=== PATIENT | female | born 1990 | race African-American/Black ===

== ENCOUNTER 2016-08-02 10:29 | Emergency (ER) | payer OTHER ==
[2016-08-02] MEDS ORDERED: Ibuprofen 800 MG TAB ONE (10:48)
--- NOTE | 2016-08-02 12:02 | ERRECORD ---
[facility] EMERGENCY RECORD HPI HEADACHE (10:48 JOHE) CHIEF COMPLAINT: Patient presents for evaluation of headache. HISTORIAN: History provided by patient, Pt. reports one month of intermittent frontal headaches radiating to both temples. Pt. reports gets the headaches about once or twice a week, and each headache lasts 15-20 minutes, but then recurs again later. Patient reports since last night she has been having the same type of headache. Patient reports pain is 8/10. Denies vision changes, photophobia, neck pain, F&C, rash, new numbness/tingling/weakness, hearing change, tinnitus, taste changes, and other symptoms. No trauma. Patient reports she has seen her PCP who gave her some medication that helped, but she ran out of it. Does state when asked that headache worse when bending over but not lying down, and she thinks sometimes headache does wake her from sleep. No personal or FH of brain lesions, aneurysm, connective tissue DOs, or PCKD. When asked, patient states she came to ED today because she did not feel like driving to [place] to see her PCP. LOCATION: Symptoms are localized, most severe in the frontal region. QUALITY: Pain is dull in nature, described as aching. TIME COURSE: Sudden onset of symptoms, There has been no change in the patient's symptoms over time, Symptoms are intermittent. ASSOCIATED WITH FEMALE: No associated aura, No associated chills, No associated fever, No associated focal weakness, Posterior circulation related symptoms, No associated nausea, No associated vomiting, no associated vertigo, not associated with Diplopia, No associated visual changes, No associated gait disturbance, Not associated with , No associated neck pain, No associated syncope, No associated trauma, No associated tingling, No associated numbness, No associated upper respiratory infection, Denies any other complaints. RELIEVED BY: Patient's condition relieved by over the counter medications, motrin last night, Patient's condition relieved by prescription medications. RISK FACTORS: Subarachnoid hemorrhage risk factors, no first degree relative, no history of subarachnoid hemorrhage, No evidence of Marfan's Syndrome, no Ruth Danlos Syndrome, No Sympathomimetic Drug Use, no polycystic kidney, Subarachnoid hemorrahage risk factor analysis completed. ROS (10:52 JOHE) CONSTITUTIONAL: Historian denies chills, denies fatigue, denies fever, denies malaise, denies night sweats, denies weakness, denies weight loss. EYES: Historian denies eye pain, denies eye redness, denies eye discharge, denies nystagmus, denies photophobia, denies tearing, denies vision changes. ENT: Historian denies otalgia, denies rhinorrhea, denies sinus pain, denies sore throat, denies stridor, denies tinnitus. CARDIOVASCULAR: Historian denies chest pain, denies syncope, denies palpitations. &a-1R&a+25V*p+0X*[id number]*c202B*c15G*c2P*p-0X&a-25V&a+1R Name: Kiarra Lee : 1990 F26 MedRec: [id number] AcctNum: [id number] Prepared: FriAug 02, 2016 11:51 by Interface Page 1 of 4 D [facility] EMERGENCY RECORD RESPIRATORY: Historian denies cough, denies shortness of breath, denies wheezing. GI: Historian denies abdominal pain, denies nausea, denies vomiting. MUSCULOSKELETAL: Historian denies back pain, denies fall, denies injury, denies neck pain. SKIN: Historian denies rash, denies skin changes. NEUROLOGIC: Historian denies confusion, denies dizziness, denies focal weakness, denies gait changes, reports headache, denies mental status changes, denies paralysis, denies paresthesias, denies seizures, denies sensory changes, denies speech changes. HEMO/LYMPHATIC: Historian denies abnormal blood clotting, denies easy bruising. NOTES: All systems reviewed, negative except as described above. PAST MEDICAL HISTORY (10:35 BDON) MEDICAL HISTORY: No past medical history, Flu vaccine not up to date, Tetanus immunization up to date, Pneumococcal vaccine not up to date. FEMALE SURGICAL HISTORY: Patient has no surgical history,. SOCIAL HISTORY: Patient drinks socially, rarely, Patient denies drug use, Patient has no smoking history. KNOWN ALLERGIES No Known Drug Allergies CURRENT MEDICATIONS (10:33 BDON) None VITAL SIGNS VITAL SIGNS: Temp: 98.6 (Oral), Time: 08/02/2016 10:31. (10:31 BDON) BP: 128/75, Pulse: 80, Resp: 18, Temp: 98.6 (Oral), Pain: 8, O2 sat: 99, Time: 08/02/2016 10:33. (10:33 BDON) Pulse: 82, Resp: 17, Pain: 8, Time: 08/02/2016 11:35. (11:35 BDON) PHYSICAL EXAM (10:53 JOHE) CONSTITUTIONAL: Vital Signs Reviewed, Patient appears non toxic, Patient alert and oriented to person, place and time. HEAD: Head exam normal, Head exam included findings of head atraumatic, normocephalic, NCAT, no raccoon eyes or sung sign. EYES: Eye exam normal, Eye exam included findings of eyelids normal to inspection, Pupils equally round and reactive to light, Extraocular muscles intact, Conjunctiva normal, Sclera normal, Fundoscopic exam normal, Eye exam included findings of anterior chamber clear, no nystagmus, PERRLA, EOMI, no nystagmus; nondilated funduscopic exam unremarkable. ENT: Pharynx exam normal, not injected, no swelling, symmetrical, &a-1R&a+25V*p+0X*g6181C*c202B*c15G*c2P*p-0X&a-25V&a+1R Name: Kiarra Lee : 1990 F26 MedRec: [id number] AcctNum: [id number] Prepared: FriAug 02, 2016 11:51 by Interface Page 2 of 4 pMD [facility] EMERGENCY RECORD Uvula exam normal, midline, no edema, Tonsil exam normal, not enlarged, no exudates, Mouth exam normal, mucous membranes moist, no drooling, no lesions, no lacerations, no tongue elevation, Left TM obscured by cerumen, right TM unremarkable. OP clear, neck supple, no meningeal signs. NECK: Neck exam normal, Neck exam included findings of normal range of motion, Trachea midline, no carotid bruits, no meningeal signs, no cervical adenopathy, no tenderness, no contusions, no ecchymosis. RESPIRATORY CHEST: Respiratory and chest exam normal, Respiratory exam included findings of no respiratory distress, Breath sounds clear, No wheezing, No rales, No rhonchi, Breath sounds not absent, Breath sounds not diminished, Chest exam included findings of chest movement symmetrical, CTAB. CARDIOVASCULAR: Cardiovascular assessment normal, Cardiovascular exam included findings of heart rate regular rate and rhythm, Heart sounds normal, Carotids normal, Pedal pulses normal, RRR, no R/M/G. + pulses all ext., no bruits, no edema. ABDOMEN FEMALE: Abdominal exam normal, Abdominal exam included findings of abdomen nontender, Bowel sounds normal. BACK: Back exam normal, Back exam included findings of normal inspection, range of motion normal. UPPER EXTREMITY: Upper extremity exam normal, Upper extremity exam included findings of inspection normal, Range of motion normal, Motor strength normal, Sensation intact, Radial pulse normal. LOWER EXTREMITY: Lower extremity exam normal, Lower extremity exam included findings of inspection normal, Range of motion normal, Motor strength normal, Sensation intact, Posterior tibial pulse normal, Pedal pulse normal, no edema. NEURO: Neuro exam normal, [place] coma scale 15, Neuro exam findings include patient oriented to person, place and time, Speech normal, Gait normal, Memory normal, Cranial nerves intact, Deep tendon reflexes normal, no focal motor deficits, no focal sensory deficits, no cerebellar deficits, no nystagmus, no clonus, no asterixis, AAO X 3, CN II-XII intact bilat., str. 5/5 all ext., sensation intact light touch all ext., normal finger-nose, THIERNO, gait. Reflexes 1-2+/4 equal all ext. SKIN: Skin exam normal, Skin exam included findings of skin warm, dry, and normal in color, no rash. PSYCHIATRIC: Psychiatric exam included findings of patient oriented to person place and time, Normal affect, Remote memory normal, Recent memory normal. RADIOLOGYINTERPRETATION (11:27 [facility]) HEAD: Head CT negative, without contrast, no bleed, no mass, no acute ischemic stroke, no acute changes. ELECTROPLATING LABORER: Preliminary review of CT scans by, Radiologist. MEDICATION ADMINISTRATION SUMMARY &a-1R&a+25V*p+0X*o6202U*c202B*c15G*c2P*p-0X&a-25V&a+1R Name: Kiarra Lee : 1990 F26 MedRec: [id number] AcctNum: [id number] Prepared: FriAug 02, 2016 11:51 by Interface Page 3 of 4 pMD [facility] EMERGENCY RECORD Drug Name: Motrin, Dose Ordered: 800 mg, Route: Oral, Status: Given, Time: 10:53 08/02/2016, Detailed record available in Medication Service section. DOCTOR NOTES (11:34 JOH) TEXT: Discussed CT scan with patient, and, given recurrent nature of headaches and location, and lack of additional symptoms, suspect tension type headaches. Recurrent, subacute nature and duration makes SAH highly unlikely with a negative CT and normal physical exam (in a comfortable appearing patient). Normal eye exam, including funduscopic exam makes increased ICP unlikely. Discussed with patient treatment for headaches, need for close outpatient f/u and discussed warning signs for immediate return to ED. Patient verbalized understanding and requests a work release. DATA REVIEWED: Lab data reviewed, Xray data reviewed. PROBLEM LIST No recorded problems DIAGNOSIS (11:32 E) FINAL: PRIMARY: TENSION-TYP HEADACHE UNS NOT INTRCT. PRESCRIPTION (11:32 JOHE) Motrin: TABLET : 800 mg : ORAL : Quantity: 1 Unit: tab(s) Route: ORAL Schedule: every 8 hours PRN Dispense: 20 Unit: tab(s) May substitute. Refills: No Refills . NOTES: No Refills. DISPOSITION PATIENT: Disposition Type: Discharge, Disposition: *Discharge Home, Condition: Good. (11:32 JOHE) Patient left the department. (11:49 BDON) [place]: ARIANA=NATALIE Claire, Lena ANDRADE=MD Lisadnra, Mauri &a-1R&a+25V*p+0X*b2958V*c202B*c15G*c2P*p-0X&a-25V&a+1R Name: Kiarra Lee : 1990 F26 MedRec: [id number] AcctNum: [id number] Prepared: FriAug 02, 2016 11:51 by Interface Page 4 of 4 pMD MTDD
--- NOTE | 2016-08-02 12:05 | PICIS ---
[facility] EMERGENCY RECORD TRIAGE (10:33 BDON) TRIAGE NOTES: Frontal headaches and temporal with sneezing. Denies fever. (10:33 BDON) PATIENT: NAME: Kiarra Lee, AGE: 26, GENDER: female, : Fri1990, TIME OF GREET: FriAug 02, 2016 10:29, PREFERRED LANGUAGE: Cymro, ETHNICITY: Not or , ECODE BILLING MAP: [facility], SSN: [id number], Zip Code: [address], KG WEIGHT: 86.18, PHONE: , , , PERSON ID: [id number], PCP: Rose Wynne. (10:33 BDON) COMPLAINT: HEADACHE. (10:33 BDON) ADMISSION: URGENCY: 4 Non Urgent, ADMISSION SOURCE: Home, TRANSPORT: Walk-in, BED: TRIAGE. (10:33 BDON) ASSESSMENT: Assessment: Frontal and temporal headache with sniffing...worse yesterday, Symptoms began 2 days ago. (10:35 BDON) LMP: Last menstrual period: 07/17/2016. (10:35 BDON) TREATMENTS IN PROGRESS: Treatments given Prehospital: none. (10:35 BDON) PROVIDERS: TRIAGE NURSE: Lena Claire RN. (10:33 BDON) VITAL SIGNS: Temp 98.6, (Oral), Time 08/02/2016 10:31. (10:31 BDON) BP 128/75, Pulse 80, Resp 18, Temp 98.6, (Oral), Pain 8, O2 Sat 99, Time 08/02/2016 10:33. (10:33 BDON) PREVIOUS VISIT ALLERGIES: No Known Drug Allergies. (10:33 BDON) No Known Drug Allergies. (10:35 BDON) KNOWN ALLERGIES No Known Drug Allergies CURRENT MEDICATIONS (10:33 BDON) None VITAL SIGNS VITAL SIGNS: Temp: 98.6 (Oral), Time: 08/02/2016 10:31. (10:31 BDON) BP: 128/75, Pulse: 80, Resp: 18, Temp: 98.6 (Oral), Pain: 8, O2 sat: 99, Time: 08/02/2016 10:33. (10:33 BDON) Pulse: 82, Resp: 17, Pain: 8, Time: 08/02/2016 11:35. (11:35 BDON) NURSING ASSESSMENT: HEADACHE (10:38 BDON) NURSING DIAGNOSIS: Nursing diagnosis: headache. CONSTITUTIONAL: Patient arrives ambulatory, Gait steady, History obtained from patient, Patient appears, uncomfortable, Patient cooperative, Patient alert, Oriented to person, place and time, Skin warm, Skin dry, Skin normal in color. HEADACHE: Headache assessment findings include headache not worst of life, no associated aura, no associated difficulty concentrating, no associated nausea, no associated vomiting, Notes: frontal and temporal headache which is worse bending over. NEURO: Able to close eyes, Face symmetrical, Speech normal, no &a-1R&a+25V*p+0X*c2635W*c202B*c15G*c2P*p-0X&a-25V&a+1R Name: Kiarra Lee : 1990 F26 MedRec: [id number] AcctNum: [id number] Prepared: FriAug 02, 2016 11:51 by Interface Page 1 of 7 pMD [facility] EMERGENCY RECORD facial droop, no facial numbness, GCS:, Eye opening: (4) - Spontaneous, Verbal: (5) - Oriented/conversive, Motor: (6) - Obeys commands/Spontaneous. ENT: no complaint of congestion. SAFETY: Cart/Stretcher in lowest position, Hospital ID band on, Patient in view of the nursing station. NURSING PROCEDURE: DISCHARGE NOTE (11:35 BDON) DISCHARGE: Patient discharged to home, ambulating without assistance, unaccompanied, Summary of Care printed/ provided, Patient requested and was provided an electronic copy of Discharge Instructions, Transition record given to patient, Discharge instructions given to patient, Simple or moderate discharge teaching performed, Prescriptions given and instructions on side effects given, Medication reconciliation form given, Above person(s) verbalized understanding of discharge instructions and follow-up care, Patient treated and evaluated by physician. VITAL SIGNS: Pulse: 82, Resp: 17, Pain: 8. ORDER DETAILS Order Name: CT Brain WO Con, Status: Active, Time: 10:46 08/02/2016, User: JOHE, - Ordered for: MD Fry John, - Entered by: MD Fry John - FriAug 02, 2016 10:46, - Quantity: 1, Order Name: Test, Urine (BHCG), Status: Active, Time: 10:46 08/02/2016, User: LUPE, - Ordered for: MD Fry John, - Entered by: MD Fry John - FriAug 02, 2016 10:46, - Quantity: 1. MEDICATION ADMINISTRATION SUMMARY Drug Name: Motrin, Dose Ordered: 800 mg, Route: Oral, Status: Given, Time: 10:53 08/02/2016, Detailed record available in Medication Service section. MEDICATION SERVICE (10:53 ) Motrin: Order: Motrin (ibuprofen) - Dose: 800 mg : Oral Schedule: Now Ordered by: Mauri Fry MD Entered by: Mauri Fry MD FriAug 02, 2016 10:46 , Acknowledged by: Jackeline Willingham RN FriAug 02, 2016 10:49 Documented as given by: Lena Claire RN FriAug 02, 2016 10:53 Patient, Medication, Dose, Route and Time verified prior to administration. Amount given: 800 mg, Site: Medication administered P.O., Correct patient, time, route, dose and medication confirmed prior to &a-1R&a+25V*p+0X*y3342T*c202B*c15G*c2P*p-0X&a-25V&a+1R Name: Kiarra Lee : 1990 F26 MedRec: [id number] AcctNum: [id number] Prepared: FriAug 02, 2016 11:51 by Interface Page 2 of 7 pMD [facility] EMERGENCY RECORD administration, Patient advised of actions and side-effects prior to administration, Allergies confirmed and medications reviewed prior to administration, Patient tolerated procedure well, Administered by NATALIE Viveros, Patient in position of comfort, Side rails up, Cart in lowest position, Call light in reach. HPI HEADACHE (10:48 [facility]) CHIEF COMPLAINT: Patient presents for evaluation of headache. HISTORIAN: History provided by patient, Pt. reports one month of intermittent frontal headaches radiating to both temples. Pt. reports gets the headaches about once or twice a week, and each headache lasts 15-20 minutes, but then recurs again later. Patient reports since last night she has been having the same type of headache. Patient reports pain is 8/10. Denies vision changes, photophobia, neck pain, F&C, rash, new numbness/tingling/weakness, hearing change, tinnitus, taste changes, and other symptoms. No trauma. Patient reports she has seen her PCP who gave her some medication that helped, but she ran out of it. Does state when asked that headache worse when bending over but not lying down, and she thinks sometimes headache does wake her from sleep. No personal or FH of brain lesions, aneurysm, connective tissue DOs, or PCKD. When asked, patient states she came to ED today because she did not feel like driving to [place] to see her PCP. LOCATION: Symptoms are localized, most severe in the frontal region. QUALITY: Pain is dull in nature, described as aching. TIME COURSE: Sudden onset of symptoms, There has been no change in the patient's symptoms over time, Symptoms are intermittent. ASSOCIATED WITH FEMALE: No associated aura, No associated chills, No associated fever, No associated focal weakness, Posterior circulation related symptoms, No associated nausea, No associated vomiting, no associated vertigo, not associated with Diplopia, No associated visual changes, No associated gait disturbance, Not associated with , No associated neck pain, No associated syncope, No associated trauma, No associated tingling, No associated numbness, No associated upper respiratory infection, Denies any other complaints. RELIEVED BY: Patient's condition relieved by over the counter medications, motrin last night, Patient's condition relieved by prescription medications. RISK FACTORS: Subarachnoid hemorrhage risk factors, no first degree relative, no history of subarachnoid hemorrhage, No evidence of Marfan's Syndrome, no Ruth Danlos Syndrome, No Sympathomimetic Drug Use, no polycystic kidney, Subarachnoid hemorrahage risk factor analysis completed. ROS (10:52 LUPE) CONSTITUTIONAL: Historian denies chills, denies fatigue, denies fever, denies malaise, denies night sweats, denies weakness, denies weight loss. EYES: Historian denies eye pain, denies eye redness, denies eye &a-1R&a+25V*p+0X*m3571E*c202B*c15G*c2P*p-0X&a-25V&a+1R Name: Kiarra Lee : 1990 F26 MedRec: [id number] AcctNum: [id number] Prepared: FriAug 02, 2016 11:51 by Interface Page 3 of 7 pMD [facility] EMERGENCY RECORD discharge, denies nystagmus, denies photophobia, denies tearing, denies vision changes. ENT: Historian denies otalgia, denies rhinorrhea, denies sinus pain, denies sore throat, denies stridor, denies tinnitus. CARDIOVASCULAR: Historian denies chest pain, denies syncope, denies palpitations. RESPIRATORY: Historian denies cough, denies shortness of breath, denies wheezing. GI: Historian denies abdominal pain, denies nausea, denies vomiting. MUSCULOSKELETAL: Historian denies back pain, denies fall, denies injury, denies neck pain. SKIN: Historian denies rash, denies skin changes. NEUROLOGIC: Historian denies confusion, denies dizziness, denies focal weakness, denies gait changes, reports headache, denies mental status changes, denies paralysis, denies paresthesias, denies seizures, denies sensory changes, denies speech changes. HEMO/LYMPHATIC: Historian denies abnormal blood clotting, denies easy bruising. NOTES: All systems reviewed, negative except as described above. PAST MEDICAL HISTORY (10:35 BDON) MEDICAL HISTORY: No past medical history, Flu vaccine not up to date, Tetanus immunization up to date, Pneumococcal vaccine not up to date. FEMALE SURGICAL HISTORY: Patient has no surgical history,. SOCIAL HISTORY: Patient drinks socially, rarely, Patient denies drug use, Patient has no smoking history. PHYSICAL EXAM (10:53 JOHE) CONSTITUTIONAL: Vital Signs Reviewed, Patient appears non toxic, Patient alert and oriented to person, place and time. HEAD: Head exam normal, Head exam included findings of head atraumatic, normocephalic, NCAT, no raccoon eyes or sung sign. EYES: Eye exam normal, Eye exam included findings of eyelids normal to inspection, Pupils equally round and reactive to light, Extraocular muscles intact, Conjunctiva normal, Sclera normal, Fundoscopic exam normal, Eye exam included findings of anterior chamber clear, no nystagmus, PERRLA, EOMI, no nystagmus; nondilated funduscopic exam unremarkable. ENT: Pharynx exam normal, not injected, no swelling, symmetrical, Uvula exam normal, midline, no edema, Tonsil exam normal, not enlarged, no exudates, Mouth exam normal, mucous membranes moist, no drooling, no lesions, no lacerations, no tongue elevation, Left TM obscured by cerumen, right TM unremarkable. OP clear, neck supple, no meningeal signs. NECK: Neck exam normal, Neck exam included findings of normal range of motion, Trachea midline, no carotid bruits, no meningeal &a-1R&a+25V*p+0X*i2972C*c202B*c15G*c2P*p-0X&a-25V&a+1R Name: Kiarra Lee : 1990 F26 MedRec: [id number] AcctNum: [id number] Prepared: FriAug 02, 2016 11:51 by Interface Page 4 of 7 D [facility] EMERGENCY RECORD signs, no cervical adenopathy, no tenderness, no contusions, no ecchymosis. RESPIRATORY CHEST: Respiratory and chest exam normal, Respiratory exam included findings of no respiratory distress, Breath sounds clear, No wheezing, No rales, No rhonchi, Breath sounds not absent, Breath sounds not diminished, Chest exam included findings of chest movement symmetrical, CTAB. CARDIOVASCULAR: Cardiovascular assessment normal, Cardiovascular exam included findings of heart rate regular rate and rhythm, Heart sounds normal, Carotids normal, Pedal pulses normal, RRR, no R/M/G. + pulses all ext., no bruits, no edema. ABDOMEN FEMALE: Abdominal exam normal, Abdominal exam included findings of abdomen nontender, Bowel sounds normal. BACK: Back exam normal, Back exam included findings of normal inspection, range of motion normal. UPPER EXTREMITY: Upper extremity exam normal, Upper extremity exam included findings of inspection normal, Range of motion normal, Motor strength normal, Sensation intact, Radial pulse normal. LOWER EXTREMITY: Lower extremity exam normal, Lower extremity exam included findings of inspection normal, Range of motion normal, Motor strength normal, Sensation intact, Posterior tibial pulse normal, Pedal pulse normal, no edema. NEURO: Neuro exam normal, Goldsmith coma scale 15, Neuro exam findings include patient oriented to person, place and time, Speech normal, Gait normal, Memory normal, Cranial nerves intact, Deep tendon reflexes normal, no focal motor deficits, no focal sensory deficits, no cerebellar deficits, no nystagmus, no clonus, no asterixis, AAO X 3, CN II-XII intact bilat., str. 5/5 all ext., sensation intact light touch all ext., normal finger-nose, THIERNO, gait. Reflexes 1-2+/4 equal all ext. SKIN: Skin exam normal, Skin exam included findings of skin warm, dry, and normal in color, no rash. PSYCHIATRIC: Psychiatric exam included findings of patient oriented to person place and time, Normal affect, Remote memory normal, Recent memory normal. LAB INTERPRETATION (11:38 JOHE) INTERPRETATION: I reviewed the lab results, Urine HCG negative. EVENTS TRANSFER: Triage to Emergency Triage. (FriAug 02, 2016 10:33 BDON) Emergency Triage to Emergency Room -03. (10:46 BDON) Removed from Emergency Emergency Room -03. (11:49 BDON) RADIOLOGYINTERPRETATION (11:27 JOHE) HEAD: Head CT negative, without contrast, no bleed, no mass, no acute ischemic stroke, no acute changes. 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 &a-1R&a+25V*p+0X*e0221Z*c202B*c15G*c2P*p-0X&a-25V&a+1R Name: Kiarra Lee : 1990 F26 MedRec: [id number] AcctNum: [id number] Prepared: FriAug 02, 2016 11:51 by Interface Page 5 of 7 pMD [facility] EMERGENCY RECORD DOCTOR NOTES (11:34 JOHE) TEXT: Discussed CT scan with patient, and, given recurrent nature of headaches and location, and lack of additional symptoms, suspect tension type headaches. Recurrent, subacute nature and duration makes SAH highly unlikely with a negative CT and normal physical exam (in a comfortable appearing patient). Normal eye exam, including funduscopic exam makes increased ICP unlikely. Discussed with patient treatment for headaches, need for close outpatient f/u and discussed warning signs for immediate return to ED. Patient verbalized understanding and requests a work release. DATA REVIEWED: Lab data reviewed, Xray data reviewed. PROBLEM LIST No recorded problems DIAGNOSIS (11:32 E) FINAL: PRIMARY: TENSION-TYP HEADACHE UNS NOT INTRCT. DISPOSITION PATIENT: Disposition Type: Discharge, Disposition: *Discharge Home, Condition: Good. (11:32 JOHE) Patient left the department. (11:49 BDON) INSTRUCTION (11:32 E) DISCHARGE: HEADACHE, TENSION, HEADACHE, UNSPECIFIED. FOLLOWUP: Follow up with Primary Care Physician in 2-3 days. SPECIAL: Follow-up with your PCP. PRESCRIPTION (11:32 E) Motrin: TABLET : 800 mg : ORAL : Quantity: 1 Unit: tab(s) Route: ORAL Schedule: every 8 hours PRN Dispense: 20 Unit: tab(s) May substitute. Refills: No Refills . NOTES: No Refills. IMAGING (11:48 BDON) *DISCHARGE INSTRUCTIONS RECEIPT: Image captured from scanner. *SUPPLY CHARGE SHEET: Image captured from scanner. ADMIN DIGITAL SIGNATURE: MD Lisandra, Mauri. (11:38 JOHE) NATALIE Claire, Lena. (11:49 BDON) RESULTS (11:05 ) LABORATORY: Test, Urine (BHCG) Collection DT: FriAug 02, 2016 11:00, Test - Urine (BHCG) NEGATIVE , Range (NEGATIVE), Method of sensitivity- Indeterminant: results should be repeated, after 48 hours. &a-1R&a+25V*p+0X*g6800B*c202B*c15G*c2P*p-0X&a-25V&a+1R Name: Kiarra Lee : 1990 F26 MedRec: [id number] AcctNum: [id number] Prepared: FriAug 02, 2016 11:51 by Interface Page 6 of 7 pMD [facility] EMERGENCY RECORD Positive: results may be detected as early as 4-5 days before a first missed menses. Elimination of BHCG-, Elimination following first trimester D&C: 29-44 Days , Elimination following term : 8-24 Days , Specific [place] 1.018 , Range (1.002-1.036), A dilute urine specimen may, not contain patient services representative levels of hCG. If is still, suspected, a first morning urine specimen OR a random blood specimen should, be obtained from the patient 48-72 hours later and re-tested. , . [place]: ARIANA=NATALIE Claire, Lena ANDRADE=MD Lisandra, Mauri &a-1R&a+25V*p+0X*m6644D*c202B*c15G*c2P*p-0X&a-25V&a+1R Name: Kiarra Lee : 1990 F26 MedRec: [id number] AcctNum: [id number] Prepared: FriAug 02, 2016 11:51 by Interface Page 7 of 7 pMD MTDD
--- NOTE | 2016-08-02 12:30 | CT ---
CT HEAD NONCONTRAST: Date: 08/02/16 HISTORY: Headache. Sneezing. FINDINGS: No comparison. There is no evidence of acute intracranial hemorrhage or infarct. The ventricles appear normal in si ze, shape, and position. There is no mass effect or shift of midline structures. IMPRESSION: No acute intracranial abnormalities are demonstrated on noncontrast CT head. POS: [place]
== END 2016-08-02 11:35 | disposition home or self-care (01) ==
LOC: NAV ERS 10:29
DX: G44.209 Tension-type headache, unspecified, not intractable (principal)
CPT/HCPCS: 70450; 81025

== ENCOUNTER 2018-06-28 15:45 | Emergency (ER) | payer OTHER ==
[2018-06-28 16:45] LABS: Wet Prep Clue Cells Clue Cells Absent (None Seen); Wet Prep Trichomonas Trichomonas Absent (None Seen)
[2018-06-28 16:48] LABS: BHCG - Serum Negative (NEGATIVE); Pregs Control Bar Appear? YES (CONTROL BAR)
[2018-06-28 16:50] LABS: #Basophils 0.1 thou/uL (0.0-0.2); #Eosinphils 0.1 thou/uL (0.0-0.7); #Lymphocytes 2.2 thou/uL (1.20-3.40); #Monocytes 0.5 thou/uL (0.11-0.59); #Neutrophils 3.9 thou/uL (1.40-6.50); %Basophils 1.2 % (0.0-1.0); %Lymphocytes 32.3 % (21.0-51.0); %Monocytes 7.6 % (0.0-10.0); Hemoglobin 12.5 g/dL (12.0-16.0); Mean Corpuscular HGB CONC 31.5 g/dL (32.0-36.0); Mean Corpuscular Hemoglobin 27.1 pg (27.0-31.0); Mean Corpuscular Volume 85.9 fL (78.0-98.0); Mean Platelet Volume 6.9 fL (7.4-10.4); Platelet Count 420 thou/uL (130-400); RBC Distribution Width 11.6 % (11.5-14.5); Red Blood Cell (RBC) Count 4.63 mill/uL (4.20-5.40); White Blood Cell (WBC) Count 6.8 thou/uL (4.8-10.8)
[2018-06-29 21:49] LABS: Chlamydia by PCR Not Detected (NotDetected); GC by PCR Not Detected (NotDetected)
== END 2018-06-28 17:02 | disposition home or self-care (01) ==
LOC: NAV ERS 15:45
DX: N92.0 Excessive and frequent menstruation with regular cycle (principal); R51 Headache
CPT/HCPCS: 84703; 85025; 87210; 87491; 87591; 99284